=== PATIENT | male | born 1980 | race Caucasian/White ===

== ENCOUNTER 2017-12-17 20:19 | Emergency (ER) | payer OTHER ==
[2017-12-17] MEDS: PENICILLIN V POTASSIUM 500 MG TAB PO (21:33)
[2017-12-17] MEDS: NORCO 5/325MG TABLET (BULK FOR ED) PO (21:34)
== END 2017-12-17 21:40 | disposition home or self-care (01) ==
LOC: M ED 20:19
DX: K04.7 Periapical abscess without sinus (principal); K02.9 Dental caries, unspecified; E11.9 Type 2 diabetes mellitus without complications; F32.9 Major depressive disorder, single episode, unspecified; Z87.442 Personal history of urinary calculi; Z87.891 Personal history of nicotine dependence; Z79.4 Long term (current) use of insulin
CPT/HCPCS: 99283

== ENCOUNTER 2021-12-04 09:41 | Emergency (ER) | payer OTHER ==
[~2021-12-04] VITALS: Ht 188 cm; Wt 110.0 kg
[~2021-12-04 09:41] MED LIST: HYDR-3715 PO; INSULADS INJ; METF500T13 PO; PENI500T PO
[2021-12-04] MEDS ORDERED: ERGO500029 (09:53)
[2021-12-04] MEDS ORDERED: JARD1TAB3 (09:53)
[2021-12-04] MEDS ORDERED: GLIP5TAB8 (09:53)
[2021-12-04] MEDS ORDERED: HYDR-3363 (09:53)
[2021-12-04] MEDS ORDERED: ZOLO100T (09:53)
[2021-12-04] MEDS ORDERED: CIPROFLOXACIN 500MG TABLET PO ONE (11:25)
[2021-12-04] MEDS ORDERED: NS 1,000 ML IV ONE (13:10)
[2021-12-04 13:30] LABS: BASO % 0.2 % (0.0-1.0); EOS # 0.1 10^3/uL (0.0-0.5); EOS % 0.3 % (0.0-3.0); HEMATOCRIT 43.7 % (42.0-52.0); HEMOGLOBIN 14.7 g/dl (13.5-17.5); LYMPH # 1.3 10^3/uL (1.5-5.0); LYMPH % 7.1 % (24.0-44.0); MEAN CORPUSCULAR HEMOGLOBIN 29.6 pg (27.0-33.0); MEAN CORPUSCULAR HGB CONC 33.6 g/dl (32.0-36.5); MEAN CORPUSCULAR VOLUME 87.9 fl (80.0-96.0); MONO # 0.9 10^3/uL (0.0-0.8); MONO % 5.3 % (2.0-8.0); NEUTROPHILS # 15.4 10^3/uL (1.5-8.5); NEUTROPHILS % 86.5 % (36.0-66.0); PLATELET COUNT, AUTOMATED 166 10^3/uL (150-450); RED BLOOD COUNT 4.97 10^6/uL (4.30-6.10); WHITE BLOOD COUNT 17.8 10^3/uL (4.0-10.0)
[2021-12-04 13:35] LABS: GC DNA AMPLIFICATION NEGATIVE (NEGATIVE)
[2021-12-04] MEDS ORDERED: CIPR-249 PO (13:53)
[2021-12-04 13:54] VITALS: BP 109/59
[2021-12-04] MEDS ORDERED: KETOROLAC 30 MG/ML 1ML VIAL IV ONE (13:55)
== END 2021-12-04 14:48 | disposition home or self-care (01) ==
LOC: M ED 09:41
DX: N45.1 Epididymitis (principal); N45.2 Orchitis; N39.0 Urinary tract infection, site not specified; E11.9 Type 2 diabetes mellitus without complications; Z79.899 Other long term (current) drug therapy; Z79.84 Long term (current) use of oral hypoglycemic drugs; Z79.4 Long term (current) use of insulin
CPT/HCPCS: 76870; 80047; 81001; 85025; 87088; 87186; 87661; 87810; 87850; 93976; 96361; 96374; 99284; J1885